=== PATIENT | female | born 1980 | race Caucasian/White ===

== ENCOUNTER 2017-05-01 12:22 | Emergency (ER) | payer OTHER ==
[~2017-05-01 12:22] MED LIST: NORVASC5 MG PO; PRILOSEC20 M1 PO; TOPROL XL25 MG PO; ZANTAC150 MG PO; ZOLOFT100 MG PO
== END 2017-05-01 14:19 | disposition home or self-care (01) ==
LOC: FER 12:22
DX: S91.312A Laceration without foreign body, left foot, initial encounter (principal); W20.8XXA Other cause of strike by thrown, projected or falling object, initial encounter; Y92.009 Unspecified place in unspecified non-institutional (private) residence as the place of occurrence of the external cause